=== PATIENT | male | born 1950 ===

== ENCOUNTER 2017-08-03 06:57 | Day surgery (SDC) | payer MEDICARE, BC ==
[~2017-08-03] VITALS: Ht 182.9 cm; Wt 81.5 kg
== END 2017-08-03 09:02 | disposition home or self-care (01) ==
LOC: ORSCSDS 06:57
PROVIDERS: Surgery
PROC: 0DBK8ZX Excision of Ascending Colon, Via Natural or Artificial Opening Endoscopic, Diagnostic (ICD-10-PCS; principal; 2017-08-03 08:00)
DX: Z12.11 Encounter for screening for malignant neoplasm of colon (principal); D12.2 Benign neoplasm of ascending colon; K21.9 Gastro-esophageal reflux disease without esophagitis
CPT/HCPCS: 88305; J0330; J1980; J2405; J7120